=== PATIENT | female | born 1980 | race Two or more races ===

== ENCOUNTER 2025-01-06 19:01 | Emergency (ER) | payer MEDICAID, SELFPAY ==
[2025-01-06 19:02] VITALS: BMI 20.1
--- NOTE | 2025-01-06 19:04 | EKG_ITS ---
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
--- NOTE | 2025-01-06 19:17 | PD.EDCHEST ---
ED Chest Pain RME/HPI General Chief Complaint: Chest Pain Stated Complaint: CHEST PAIN TO RADIATING Time Seen by Provider: 01/06/25 19:16 Arrival date/time: 01/06/25 19:01 RME / HPI RME / HPI narrative: See [facility] for Dr. Morris's HPI documentation. Related Data Previous Rx's ?Medication ?Instructions ?Recorded doxycycline hyclate 100 mg capsule 100 mg PO BID #16 caps 03/24/17 (Vibramycin) etodolac 500 mg tablet 500 mg PO BID #14 tabs 11/27/17 Allergies Allergy/AdvReac Type Severity Reaction Status Date / Time grape Allergy Mild Rash Verified 01/06/25 19:02 Review of Systems Review of Systems Systems Reviewed: All systems reviewed, normal except as documented Past Medical History Social History SMOKING STATUS: Current some day smoker ED Exam Narrative Physical exam: See [facility] for Dr. Morris's physical exam documentation. Course Course Course Narrative: CXR is ordered for determining the etiology of chest pain. Quality Measures none Orders Category Date Time Status EKG (ED ONLY) *Do not use* NOW Care 01/06/25 19:04 Completed EKG (ED Only) Stat Exams 01/06/25 19:04 Draft Chest Pain MDM Narrative [facility] Narrative:: This section includes all my notes and documentations, including HPI, PE, and ED course. Lalo Morris MD HPI: 44yo female here with chest pain for the last 1 hour. Patient also has jaw discomfort with numbness and tingling to her bilateral hands and feet. No shortness of breath or cough. No other complaints reported. ROS: All negative except as documented in HPI. Physical Exam: General: Alert and oriented. No acute distress when remaining still. Eyes: Conjunctivae and lids clear. ENT: No nasal congestion. Neck: Supple. Heart: RRR. Lungs: No respiratory distress. Good air movement. No rhonchi, wheezing, rales. Chest: No tenderness. Abdomen: Soft and nontender. Normal bowel sounds. No distension. No rebound or guarding. Back: No CVA tenderness. Skin: Warm and dry. Neuro: Alert and oriented X 3. I ordered diagnostic tests, including chest x-ray, labs, and EKG. I was told the patient eloped prior to diagnostic tests. Lalo Morris MD Patient data External records reviewed:: [facility] previous records (Per chart review, patient has no relevant previous ED visits.) Clinical information provided by:: patient Social determinants that could affect healthcare access:: none Patient has the following chronic illnesses:: History of aneurysm. How is presenting disease/condition affected by chronic disease/condition?: uneffected by Evaluation data The following diagnostics were reviewed and interpreted by me:: lab results, radiology exam(s) and EKG tracing(s) (My interpretation of the EKG is: Sinus rhythm (67 bpm) with nonspecific ST-T changes. Lalo Morris MD) Lab and/or radiology exams considered but not ordered:: none Interpretation Summary: Patient eloped prior to diagnostic tests. Medications / Prescriptions Medications or Prescriptions considered but not ordered:: none Medication administrations:: none Consultations Consultation(s) initiated? (list below): No Diagnosis Chest Pain Differential Diagnosis: pneumothorax, stable angina, unstable angina pectoris, st elevation myocardial infarction and costochondritis Most likely diagnosis given after review of the tests above:: Patient eloped prior to diagnostic tests. Admission Indicated Admission indicated?: not indicated Explain why admission is indicated or not indicated:: Patient eloped prior to diagnostic tests. Admission Request Was there a request for admission?: No Disposition Plan Disposition Plan: other (specify) (Elopement) Discharge Plan Plan Patient Disposition: Elopement Prescriptions/Referrals Prescriptions/Med Rec: No Action doxycycline hyclate [Vibramycin] 100 MG capsule 100 mg PO BID Qty: 16 0RF Rx Instructions: FOR INFECTION etodolac 500 mg tablet 500 mg PO BID Qty: 14 0RF Referrals: No Primary/Family,Physician [Primary Care Provider] - In 1 week Problem List Clinical Impression: Chest pain Patient/Caregiver Discharge Instructions Print Language: Citizen Of [place]
--- NOTE | 2025-01-06 19:44 | PC.NURSE ---
NO ANSWER AT ER LOBBY OR OUTSIDE ER FOR X-RAY.
--- NOTE | 2025-01-06 20:10 | PC.NURSE ---
NO ANSWER AT ER LOBBY OR OUTSIDE ER TO BE DRAWN BLOOD AND DO X-RAY.
== END 2025-01-06 20:14 | disposition left against medical advice (07) ==
PROVIDERS: Emergency Provider Emergency Medicine
DX: R07.9 Chest pain, unspecified (principal); R20.0 Anesthesia of skin; R20.2 Paresthesia of skin; Z86.79 Personal history of other diseases of the circulatory system; Z53.21 Procedure and treatment not carried out due to patient leaving prior to being seen by health care provider
CPT/HCPCS: 80048; 83735; 83880; 84443; 84484; 85025; 85379; 99283